=== PATIENT | female | born 1950 | race Caucasian/White ===

== ENCOUNTER → 2016-11-01 | Outpatient (CLI) | payer MEDICARE, OTHER | END | disposition home or self-care (01) | LOC: CFH 09:28 | PROVIDERS: ATTEND Internal Medicine | DX: J98.11 Atelectasis (principal) | CPT/HCPCS: 71020 ==

== ENCOUNTER → 2016-11-30 | Outpatient (CLI) | payer MEDICARE ==
[~2016-11-30] MED LIST: FURO-92 PO; METF10002 PO; OMNIPAQUE 350 MG/ML, 100ML BOTTLE ONE; POTA20TA91 PO; SIMV40TA3 PO
== END | disposition home or self-care (01) ==
LOC: RAD 16:27
PROVIDERS: ATTEND Internal Medicine
DX: J90 Pleural effusion, not elsewhere classified (principal); E04.1 Nontoxic single thyroid nodule; J98.11 Atelectasis; R18.8 Other ascites; E11.65 Type 2 diabetes mellitus with hyperglycemia; K21.9 Gastro-esophageal reflux disease without esophagitis; R60.9 Edema, unspecified; R77.0 Abnormality of albumin; Z90.49 Acquired absence of other specified parts of digestive tract
CPT/HCPCS: 36415; 71260; 74177; 82565; Q9967

== ENCOUNTER 2016-12-03 11:02 | Inpatient (IN) | payer MEDICARE ==
[~2016-12-03] VITALS: Ht 170.2 cm; Wt 128.4 kg
[2016-12-03] MEDS ORDERED: SODIUM CHLORIDE 0.9% 1,000 ML IV ONE (11:39)
[2016-12-03] MEDS ORDERED: SIMV40TA3 PO (11:54)
[2016-12-03] MEDS ORDERED: METF10002 PO (11:54)
[2016-12-03] MEDS ORDERED: POTA20TA91 PO (11:54)
[2016-12-03] MEDS ORDERED: FURO-92 PO (11:54)
[2016-12-03] MEDS ORDERED: SODIUM CHLORIDE FLUSH 10ML SYR IVF ONE (12:00)
[2016-12-03 12:12] LABS: HEMATOCRIT 44.9 % (34.6-47.8); HEMOGLOBIN 14.4 g/dL (11.7-16.4); WHITE BLOOD COUNT 11.6 x10^3/uL (3.4-10)
[2016-12-03 12:23] LABS: ASPARTATE AMINO TRANSFERASE 39 U/L (15-37); BLOOD UREA NITROGEN 10 mg/dL (7-18)
[2016-12-03 12:30] LABS: CARCINOEMBRYONIC ANTIGEN 0.46 ng/mL (0.0-3.00)
[2016-12-03 15:05] VITALS: BP 151/80
[2016-12-03] MEDS ORDERED: ONDANSETRON 2MG/ML, 2ML IVPush PRN (16:00)
[2016-12-03] MEDS ORDERED: ACETAMINOPHEN 325 MG TABLET PO PRN (16:00)
[2016-12-03] MEDS ORDERED: POLYETHYLENE GLYCOL 17 GM PACKET PO PRN (16:00)
[2016-12-03] MEDS ORDERED: DOCUSATE 100 MG CAPSULE PO PRN (16:00)
[2016-12-03] MEDS ORDERED: BISACODYL 10 MG SUPP PR PRN (16:00)
[2016-12-03] MEDS ORDERED: GLUCAGON 1 MG IM PRN (16:30)
[2016-12-03] MEDS ORDERED: DEXTROSE 4 GM TAB.CHEW PO PRN (16:30)
[2016-12-03] MEDS ORDERED: DEXTROSE 50%, 50ML SYRINGE IVPush PRN (16:30)
[2016-12-03] MEDS: INSULIN ASPART 100 UNITS/ML, PEN SQ-INSULIN SCH ×2 (16:45→19:39)
[2016-12-03] MEDS ORDERED: LIDOCAINE 1%, 20ML ONE (19:30)
[2016-12-03] MEDS: SIMVASTATIN 40 MG TABLET PO SCH (19:39)
[2016-12-03] MEDS: SODIUM CHLORIDE FLUSH 10ML SYR IVF SCH (19:40)
[2016-12-03 19:48] VITALS: BP 133/81
[2016-12-03 20:24] LABS: CYTOLOGY BODY FLUID RECD INTO PATHOLOGY; CYTOLOGY BODY FLUID SOURCE PLEURAL FLUID
[2016-12-03] MEDS: MORPHINE SULFATE 4 MG/ML, 1ML IVPush PRN (22:10)
[2016-12-04 01:02] VITALS: BP 138/88
[2016-12-04 04:37] LABS: HEMATOCRIT 40.9 % (34.6-47.8); HEMOGLOBIN 12.9 g/dL (11.7-16.4); WHITE BLOOD COUNT 10.9 x10^3/uL (3.4-10)
[2016-12-04 04:47] LABS: ASPARTATE AMINO TRANSFERASE 31 U/L (15-37); BLOOD UREA NITROGEN 11 mg/dL (7-18)
[2016-12-04] MEDS: MORPHINE SULFATE 4 MG/ML, 1ML IVPush PRN ×3 (05:32→20:32)
[2016-12-04] MEDS: INSULIN ASPART 100 UNITS/ML, PEN SQ-INSULIN SCH ×4 (07:00→20:41)
[2016-12-04 07:10] VITALS: BP 117/76
[2016-12-04] MEDS: SODIUM CHLORIDE FLUSH 10ML SYR IVF SCH ×2 (07:51→20:32)
[2016-12-04] MEDS ORDERED: LIDOCAINE 1%, 20ML ONE (11:17)
[2016-12-04 12:38] LABS: CYTOLOGY BODY FLUID RECD INTO PATHOLOGY; CYTOLOGY BODY FLUID SOURCE PLEURAL FLUID
[2016-12-04 13:05] VITALS: BP 132/74
[2016-12-04 20:30] VITALS: BP 125/78
[2016-12-04] MEDS: SIMVASTATIN 40 MG TABLET PO SCH (20:32)
[2016-12-05 03:35] VITALS: BP 113/72
[2016-12-05] MEDS: INSULIN ASPART 100 UNITS/ML, PEN SQ-INSULIN SCH ×4 (07:00→20:42)
[2016-12-05 07:33] VITALS: BP 119/80
[2016-12-05] MEDS: SODIUM CHLORIDE FLUSH 10ML SYR IVF SCH ×2 (09:00→20:46)
[2016-12-05 13:33] VITALS: BP 108/73
[2016-12-05 18:44] VITALS: BP 114/74
[2016-12-05] MEDS: SIMVASTATIN 40 MG TABLET PO SCH (20:32)
[2016-12-06 02:24] VITALS: BP 124/77
[2016-12-06 05:01] LABS: HEMATOCRIT 39.4 % (34.6-47.8); HEMOGLOBIN 12.5 g/dL (11.7-16.4); WHITE BLOOD COUNT 10.6 x10^3/uL (3.4-10)
[2016-12-06 05:12] LABS: BLOOD UREA NITROGEN 11 mg/dL (7-18)
[2016-12-06] MEDS: INSULIN ASPART 100 UNITS/ML, PEN SQ-INSULIN SCH ×2 (07:00→11:00)
[2016-12-06] MEDS: SODIUM CHLORIDE FLUSH 10ML SYR IVF SCH (07:36)
[2016-12-06 08:40] VITALS: BP 108/68
[2016-12-06] MEDS ORDERED: POTASSIUM CHLORIDE 20 MEQ TAB.ER.PRT PO ONE (13:00)
[2016-12-06 13:15] VITALS: BP 109/67
[2016-12-06] MEDS: FUROSEMIDE 40 MG/4 ML IV SCH (15:20)
[2016-12-06] MEDS: metFORMIN 500 MG TABLET PO SCH (17:25)
[2016-12-06 18:49] VITALS: BP 117/69
[2016-12-06] MEDS: SIMVASTATIN 40 MG TABLET PO SCH (20:31)
[2016-12-07 03:07] VITALS: BP 115/70
[2016-12-07 04:27] LABS: BLOOD UREA NITROGEN 12 mg/dL (7-18)
[2016-12-07] MEDS: FUROSEMIDE 40 MG/4 ML IV SCH ×2 (07:07→07:09)
[2016-12-07] MEDS: metFORMIN 500 MG TABLET PO SCH ×2 (07:07→17:25)
[2016-12-07 08:06] VITALS: BP 114/66
[2016-12-07] MEDS ORDERED: FUROSEMIDE 40 MG TABLET PO ONE (08:30)
[2016-12-07 14:23] VITALS: BP 105/67
[2016-12-07] MEDS ORDERED: GADOBUTROL 10 MMOL/10 ML PFS ONE (15:00)
[2016-12-07] MEDS: FUROSEMIDE 40 MG TABLET PO SCH (17:00)
[2016-12-07 19:18] VITALS: BP 114/67
[2016-12-07] MEDS: SIMVASTATIN 40 MG TABLET PO SCH (19:48)
[2016-12-08 01:25] VITALS: BP 118/66
[2016-12-08 04:45] LABS: BLOOD UREA NITROGEN 11 mg/dL (7-18)
[2016-12-08] MEDS: FUROSEMIDE 40 MG TABLET PO SCH (08:02)
[2016-12-08] MEDS: metFORMIN 500 MG TABLET PO SCH ×2 (08:02→16:40)
[2016-12-08 08:56] VITALS: BP 115/77
[2016-12-08] MEDS ORDERED: GOLYTELY 4,000ML ORAL.SOL PO ONE (12:00)
[2016-12-08] MEDS: PIPERACILLIN/TAZO/PMX 3.375GM 50 ML IV SCH ×2 (12:18→19:53)
[2016-12-08 16:24] VITALS: BP 130/74
[2016-12-08] MEDS: SIMVASTATIN 40 MG TABLET PO SCH (19:53)
[2016-12-08] MEDS ORDERED: ONDANSETRON 2MG/ML, 2ML IVPush PRN (20:00)
[2016-12-08] MEDS ORDERED: DOCUSATE 100 MG CAPSULE PO PRN (20:00)
[2016-12-08] MEDS ORDERED: BISACODYL 10 MG SUPP PR PRN (20:00)
[2016-12-08] MEDS ORDERED: ACETAMINOPHEN 325 MG TABLET PO PRN (20:00)
[2016-12-08] MEDS ORDERED: POLYETHYLENE GLYCOL 17 GM PACKET PO PRN (20:00)
[2016-12-08 20:17] VITALS: BP 121/77
[2016-12-09] VITALS (10 sets, daily range): BP systolic 80–121; BP diastolic 44–71
[2016-12-09 03:41] LABS: HEMATOCRIT 36.8 % (34.6-47.8); HEMOGLOBIN 11.8 g/dL (11.7-16.4); WHITE BLOOD COUNT 9.4 x10^3/uL (3.4-10)
[2016-12-09 03:58] LABS: BLOOD UREA NITROGEN 9 mg/dL (7-18)
[2016-12-09] MEDS: PIPERACILLIN/TAZO/PMX 3.375GM 50 ML IV SCH ×3 (04:57→22:09)
[2016-12-09] MEDS: metFORMIN 500 MG TABLET PO SCH ×2 (08:53→16:22)
[2016-12-09] MEDS ORDERED: MIDAZOLAM 1 MG/ML, 2ML ONE (09:58)
[2016-12-09] MEDS ORDERED: FENTANYL PF 100 MCG/2ML ONE ×3 (09:58)
[2016-12-09] MEDS ORDERED: PROPOFOL 10 MG/ML, 20ML ONE (10:21)
[2016-12-09] MEDS ORDERED: ROCURONIUM 10 MG/ML ONE (10:21)
[2016-12-09] MEDS ORDERED: ONDANSETRON 2MG/ML, 2ML ONE (10:21)
[2016-12-09] MEDS ORDERED: OXYcodone 5 MG/5 ML ORAL.SOL UDC PO PRN (10:30)
[2016-12-09] MEDS ORDERED: hydrALAzine 20 MG/ML, 1ML IV PRN (10:30)
[2016-12-09] MEDS ORDERED: LABETALOL 5MG/ML, 20ML IV PRN (10:30)
[2016-12-09] MEDS ORDERED: MEPERIDINE/PF 25MG/0.5ML IVPush PRN (10:30)
[2016-12-09] MEDS ORDERED: ONDANSETRON 2MG/ML, 2ML IVPush PRN ×2 (10:30→12:00)
[2016-12-09] MEDS ORDERED: PROMETHAZINE 25 MG/ML, 1ML IV PRN (10:30)
[2016-12-09] MEDS ORDERED: HYDROmorphone 1 MG/ML, 1ML IV PRN (10:30)
[2016-12-09] MEDS ORDERED: ACETAMINOPHEN 325 MG TABLET PO PRN (10:30)
[2016-12-09] MEDS ORDERED: FENTANYL PF 100 MCG/2ML IV PRN (10:30)
[2016-12-09] MEDS ORDERED: PIPERACILLIN/TAZO/PMX 3.375GM 50 ML ONE (10:52)
[2016-12-09] MEDS ORDERED: POTASSIUM CHLORIDE 20 MEQ in D5%-0.45% NACL 1,000 ML IV SCH ×2 (11:58→22:30)
[2016-12-09] MEDS: KETOROLAC 30 MG/1 ML IVPush SCH ×2 (12:00→18:16)
[2016-12-09 14:37] LABS: HEMATOCRIT 39.4 % (34.6-47.8); HEMOGLOBIN 12.4 g/dL (11.7-16.4); WHITE BLOOD COUNT 32.4 x10^3/uL (3.4-10)
[2016-12-09] MEDS ORDERED: SODIUM CHLORIDE 0.9% 1,000ML IVBOLUS STA (14:47)
[2016-12-09 14:55] LABS: DIFF TOTAL CELLS COUNTED 100 CELL DIFF
[2016-12-09 14:57] LABS: ANISOCYTOSIS 1+; POLYCHROMASIA 1+
[2016-12-09 14:58] LABS: LARGE PLATELETS 1+
[2016-12-09] MEDS ORDERED: SODIUM CHLORIDE 0.9% 2,000 ML IV ONE (15:00)
[2016-12-09 15:09] LABS: VERIFY COUNTS? YES
[2016-12-09] MEDS: ALBUMIN HUMAN 5% 500 ML IV SCH (16:21)
[2016-12-09] MEDS: SIMVASTATIN 40 MG TABLET PO SCH (21:00)
[2016-12-09] MEDS ORDERED: LACTATED RINGERS 1,000 ML IVBOLUS ONE (21:30)
[2016-12-09] MEDS ORDERED: D5%-0.45NACL+KCL 20MEQ 1,000 ML IV SCH (23:30)
[2016-12-10] MEDS: KETOROLAC 30 MG/1 ML IVPush SCH ×4 (00:30→18:11)
[2016-12-10 01:33] VITALS: BP 97/61
[2016-12-10] MEDS: ALBUMIN HUMAN 5% 500 ML IV SCH ×2 (02:49→13:09)
[2016-12-10] MEDS: PIPERACILLIN/TAZO/PMX 3.375GM 50 ML IV SCH ×3 (05:00→22:19)
[2016-12-10] MEDS: ENOXAPARIN 40 MG/0.4 ML SQ SCH (05:03)
[2016-12-10] MEDS: D5%-0.45NACL+KCL 20MEQ 1,000 ML IV SCH ×5 (05:07→22:30)
[2016-12-10 05:10] LABS: HEMATOCRIT 26.2 % (34.6-47.8); HEMOGLOBIN 8.2 g/dL (11.7-16.4); WHITE BLOOD COUNT 11.2 x10^3/uL (3.4-10)
[2016-12-10 05:13] LABS: BLOOD UREA NITROGEN 10 mg/dL (7-18)
[2016-12-10 05:16] LABS: TOTAL IRON BINDING CAPACITY 144 mcg/dL (250-450)
[2016-12-10 05:47] LABS: DIFF TOTAL CELLS COUNTED 100 CELL DIFF
[2016-12-10 05:50] LABS: ANISOCYTOSIS 1+; VERIFY COUNTS? YES
[2016-12-10 05:51] LABS: LARGE PLATELETS 1+
[2016-12-10 07:19] VITALS: BP 99/59
[2016-12-10] MEDS: metFORMIN 500 MG TABLET PO SCH ×2 (09:07→17:55)
[2016-12-10] MEDS: IRON SUCROSE COMPLEX 100MG/5ML IV SCH (13:08)
[2016-12-10 13:22] VITALS: BP 77/46
[2016-12-10 14:00] VITALS: BP 86/38
[2016-12-10 14:04] VITALS: BP 94/41
[2016-12-10 18:56] VITALS: BP 100/57
[2016-12-10] MEDS: SIMVASTATIN 40 MG TABLET PO SCH (22:18)
[2016-12-11] MEDS: KETOROLAC 30 MG/1 ML IVPush SCH ×5 (00:16→23:56)
[2016-12-11] MEDS: NYSTATIN 500,000 UNITS/5 ML UDC PO SCH ×5 (00:16→22:38)
[2016-12-11 03:35] VITALS: BP 94/60
[2016-12-11] MEDS: D5%-0.45NACL+KCL 20MEQ 1,000 ML IV SCH ×4 (04:30→22:38)
[2016-12-11 05:35] LABS: HEMOGLOBIN 7.2 g/dL (11.7-16.4); WHITE BLOOD COUNT 13.6 x10^3/uL (3.4-10)
[2016-12-11 05:36] LABS: HEMATOCRIT 22.3 % (34.6-47.8)
[2016-12-11] MEDS: ENOXAPARIN 40 MG/0.4 ML SQ SCH (05:43)
[2016-12-11] MEDS: PIPERACILLIN/TAZO/PMX 3.375GM 50 ML IV SCH ×3 (05:44→20:41)
[2016-12-11 07:05] VITALS: BP 100/52
[2016-12-11] MEDS ORDERED: MAGNESIUM HYDROXIDE 8%, 30ML UDC PO PRN (09:00)
[2016-12-11] MEDS: IRON SUCROSE COMPLEX 100MG/5ML IV SCH (09:17)
[2016-12-11] MEDS: metFORMIN 500 MG TABLET PO SCH ×2 (09:17→16:43)
[2016-12-11] MEDS ORDERED: FUROSEMIDE 40 MG/4 ML IV ONE (13:00)
[2016-12-11 14:10] VITALS: BP 77/51
[2016-12-11 19:46] VITALS: BP 106/71
[2016-12-11] MEDS: SIMVASTATIN 40 MG TABLET PO SCH (20:42)
[2016-12-12] VITALS (7 sets, daily range): BP systolic 114–148; BP diastolic 45–70
[2016-12-12] MEDS: D5%-0.45NACL+KCL 20MEQ 1,000 ML IV SCH ×4 (04:00→21:22)
[2016-12-12] MEDS: PIPERACILLIN/TAZO/PMX 3.375GM 50 ML IV SCH ×3 (05:00→21:23)
[2016-12-12] MEDS: NYSTATIN 500,000 UNITS/5 ML UDC PO SCH ×4 (05:30→21:55)
[2016-12-12] MEDS: ENOXAPARIN 40 MG/0.4 ML SQ SCH (06:00)
[2016-12-12] MEDS: KETOROLAC 30 MG/1 ML IVPush SCH ×3 (06:00→17:39)
[2016-12-12 08:19] LABS: BLOOD UREA NITROGEN 8 mg/dL (7-18)
[2016-12-12 08:25] LABS: HEMATOCRIT 23.8 % (34.6-47.8); HEMOGLOBIN 7.4 g/dL (11.7-16.4); WHITE BLOOD COUNT 12.5 x10^3/uL (3.4-10)
[2016-12-12] MEDS ORDERED: FUROSEMIDE 40 MG/4 ML IV ONE (09:30)
[2016-12-12] MEDS: metFORMIN 500 MG TABLET PO SCH ×2 (09:52→17:20)
[2016-12-12] MEDS: IRON SUCROSE COMPLEX 100MG/5ML IV SCH (09:53)
[2016-12-12] MEDS ORDERED: DIPHENHYDRAMINE 50 MG/ML, 1ML IVPush PRN (10:30)
[2016-12-12] MEDS ORDERED: DIPHENHYDRAMINE 50 MG/ML, 1ML ONE (10:34)
[2016-12-12] MEDS: SIMVASTATIN 40 MG TABLET PO SCH (21:23)
[2016-12-13] MEDS: KETOROLAC 30 MG/1 ML IVPush SCH ×4 (00:09→18:23)
[2016-12-13 01:38] VITALS: BP 113/68
[2016-12-13 03:06] LABS: HEMATOCRIT 28.1 % (34.6-47.8); HEMOGLOBIN 9.1 g/dL (11.7-16.4); WHITE BLOOD COUNT 12.4 x10^3/uL (3.4-10)
[2016-12-13 03:16] LABS: BLOOD UREA NITROGEN 6 mg/dL (7-18)
[2016-12-13] MEDS: NYSTATIN 500,000 UNITS/5 ML UDC PO SCH ×4 (05:30→20:28)
[2016-12-13] MEDS: D5%-0.45NACL+KCL 20MEQ 1,000 ML IV SCH (05:36)
[2016-12-13] MEDS: PIPERACILLIN/TAZO/PMX 3.375GM 50 ML IV SCH ×3 (05:36→22:13)
[2016-12-13] MEDS: ENOXAPARIN 40 MG/0.4 ML SQ SCH (05:37)
[2016-12-13 08:07] VITALS: BP 122/78
[2016-12-13] MEDS: metFORMIN 500 MG TABLET PO SCH ×2 (08:49→18:03)
[2016-12-13] MEDS: IRON SUCROSE COMPLEX 100MG/5ML IV SCH (08:49)
[2016-12-13] MEDS ORDERED: D5%-0.45NACL+KCL 20MEQ 1,000 ML IV SCH (10:00)
[2016-12-13 14:00] VITALS: BP 101/64
[2016-12-13 16:23] VITALS: BP 101/64
[2016-12-13] MEDS: FUROSEMIDE 40 MG/4 ML IV SCH (17:00)
[2016-12-13] MEDS: SIMVASTATIN 40 MG TABLET PO SCH (20:43)
[2016-12-13 20:54] VITALS: BP 118/66
[2016-12-14] MEDS: KETOROLAC 30 MG/1 ML IVPush SCH ×2 (00:05→05:50)
[2016-12-14 00:16] VITALS: BP 133/78
[2016-12-14] MEDS: NYSTATIN 500,000 UNITS/5 ML UDC PO SCH ×4 (01:08→23:30)
[2016-12-14 04:39] LABS: HEMOGLOBIN 9.3 g/dL (11.7-16.4); WHITE BLOOD COUNT 10.8 x10^3/uL (3.4-10)
[2016-12-14 04:45] LABS: BLOOD UREA NITROGEN 5 mg/dL (7-18)
[2016-12-14] MEDS: ENOXAPARIN 40 MG/0.4 ML SQ SCH (05:36)
[2016-12-14] MEDS: PIPERACILLIN/TAZO/PMX 3.375GM 50 ML IV SCH ×3 (05:50→22:20)
[2016-12-14 06:40] VITALS: BP 102/67
[2016-12-14] MEDS ORDERED: OMEPRAZOLE 20 MG CAPSULE.DR PO SCH (07:30)
[2016-12-14] MEDS: FUROSEMIDE 40 MG/4 ML IV SCH ×2 (07:30→16:56)
[2016-12-14] MEDS: metFORMIN 500 MG TABLET PO SCH ×2 (08:00→16:55)
[2016-12-14] MEDS ORDERED: FENTANYL PF 100 MCG/2ML ONE ×2 (09:45→09:46)
[2016-12-14] MEDS ORDERED: MIDAZOLAM 1 MG/ML, 5ML ONE (10:24)
[2016-12-14 13:47] VITALS: BP 116/45
[2016-12-14 19:58] VITALS: BP 127/75
[2016-12-14] MEDS: OMEPRAZOLE 20 MG CAPSULE.DR PO SCH (20:17)
[2016-12-14] MEDS: SIMVASTATIN 40 MG TABLET PO SCH (20:17)
[2016-12-15 02:20] VITALS: BP 156/59
[2016-12-15] MEDS: NYSTATIN 500,000 UNITS/5 ML UDC PO SCH ×5 (04:44→22:51)
[2016-12-15] MEDS: ENOXAPARIN 40 MG/0.4 ML SQ SCH (04:59)
[2016-12-15] MEDS: PIPERACILLIN/TAZO/PMX 3.375GM 50 ML IV SCH ×2 (04:59→13:59)
[2016-12-15 07:07] VITALS: BP 120/74
[2016-12-15] MEDS: metFORMIN 500 MG TABLET PO SCH ×2 (08:07→17:01)
[2016-12-15] MEDS: OMEPRAZOLE 20 MG CAPSULE.DR PO SCH ×2 (08:07→20:14)
[2016-12-15 13:32] VITALS: BP 117/73
[2016-12-15 19:46] VITALS: BP 108/76
[2016-12-15] MEDS: SIMVASTATIN 40 MG TABLET PO SCH (20:14)
[2016-12-16 04:23] VITALS: BP 120/73
[2016-12-16] MEDS: ENOXAPARIN 40 MG/0.4 ML SQ SCH (04:36)
[2016-12-16] MEDS: metFORMIN 500 MG TABLET PO SCH ×2 (07:44→16:56)
[2016-12-16] MEDS: OMEPRAZOLE 20 MG CAPSULE.DR PO SCH ×2 (07:44→16:56)
[2016-12-16 07:46] VITALS: BP 116/71
[2016-12-16] MEDS: NYSTATIN 500,000 UNITS/5 ML UDC PO SCH ×3 (11:19→23:30)
[2016-12-16 13:51] VITALS: BP 131/73
[2016-12-16] MEDS ORDERED: LABETALOL 5MG/ML, 20ML IV PRN (14:00)
[2016-12-16] MEDS ORDERED: ONDANSETRON 2MG/ML, 2ML IVPush PRN (14:00)
[2016-12-16] MEDS ORDERED: BISACODYL 10 MG SUPP PR PRN (14:00)
[2016-12-16] MEDS ORDERED: DOCUSATE 100 MG CAPSULE PO PRN (14:00)
[2016-12-16] MEDS ORDERED: DIPHENHYDRAMINE 50 MG/ML, 1ML IVPush PRN (14:00)
[2016-12-16] MEDS ORDERED: PROMETHAZINE 25 MG/ML, 1ML IV PRN (14:00)
[2016-12-16] MEDS ORDERED: BUMETANIDE 0.25 MG/ML, 4ML IV ONE (15:00)
[2016-12-16 18:49] VITALS: BP 109/74
[2016-12-16] MEDS: SIMVASTATIN 40 MG TABLET PO SCH (20:14)
[2016-12-17 03:06] VITALS: BP 128/75
[2016-12-17] MEDS: NYSTATIN 500,000 UNITS/5 ML UDC PO SCH ×4 (05:16→23:21)
[2016-12-17] MEDS: ENOXAPARIN 40 MG/0.4 ML SQ SCH (06:14)
[2016-12-17] MEDS: metFORMIN 500 MG TABLET PO SCH ×2 (07:11→16:37)
[2016-12-17] MEDS: OMEPRAZOLE 20 MG CAPSULE.DR PO SCH ×2 (07:11→16:37)
[2016-12-17] MEDS ORDERED: BUMETANIDE 0.25 MG/ML, 4ML IV ONE (08:00)
[2016-12-17 08:02] VITALS: BP 138/82
[2016-12-17 14:17] VITALS: BP 123/77
[2016-12-17 19:14] VITALS: BP 137/79
[2016-12-17] MEDS: SIMVASTATIN 40 MG TABLET PO SCH (21:23)
[2016-12-18 03:55] VITALS: BP 119/71
[2016-12-18] MEDS: NYSTATIN 500,000 UNITS/5 ML UDC PO SCH ×2 (05:19→11:30)
[2016-12-18] MEDS: ENOXAPARIN 40 MG/0.4 ML SQ SCH (06:46)
[2016-12-18 07:28] VITALS: BP 114/71
[2016-12-18] MEDS: metFORMIN 500 MG TABLET PO SCH (07:33)
[2016-12-18] MEDS: OMEPRAZOLE 20 MG CAPSULE.DR PO SCH (07:33)
[2016-12-18 11:39] VITALS: BP 145/84
[2016-12-18] MEDS ORDERED: OMEP-110 PO (12:09)
[2016-12-18] MEDS ORDERED: HYDR-3241 PO (12:11)
== END 2016-12-18 14:17 | disposition home health service (06) | DRG 736 ==
LOC: ED 12:31 → EDIP 12:48 → 3NW 15:04
PROVIDERS: ADMIT Family Medicine; ATTEND Internal Medicine
PROC: 0W993ZZ Drainage of Right Pleural Cavity, Percutaneous Approach (ICD-10-PCS; 2016-12-03)
PROC: BB4BZZZ Ultrasonography of Pleura (ICD-10-PCS; 2016-12-03)
PROC: 0WBF3ZX Excision of Abdominal Wall, Percutaneous Approach, Diagnostic (ICD-10-PCS; 2016-12-04)
PROC: 0DBS0ZZ (ICD-10-PCS; 2016-12-09)
PROC: 0WBF0ZX Excision of Abdominal Wall, Open Approach, Diagnostic (ICD-10-PCS; 2016-12-09)
PROC: 0DBV0ZZ Excision of Mesentery, Open Approach (ICD-10-PCS; 2016-12-09)
PROC: 0UT20ZZ Resection of Bilateral Ovaries, Open Approach (ICD-10-PCS; principal; 2016-12-09 10:00)
PROC: 0W9B3ZZ Drainage of Left Pleural Cavity, Percutaneous Approach (ICD-10-PCS; 2016-12-11)
PROC: 30233N1 Transfusion of Nonautologous Red Blood Cells into Peripheral Vein, Percutaneous Approach (ICD-10-PCS; 2016-12-12)
PROC: 0DJ08ZZ Inspection of Upper Intestinal Tract, Via Natural or Artificial Opening Endoscopic (ICD-10-PCS; 2016-12-14)
DX: C56.9 Malignant neoplasm of unspecified ovary (principal); E43 Unspecified severe protein-calorie malnutrition; J96.00 Acute respiratory failure, unspecified whether with hypoxia or hypercapnia; J90 Pleural effusion, not elsewhere classified; J91.0 Malignant pleural effusion; J18.9 Pneumonia, unspecified organism; Z68.41 Body mass index [BMI] 40.0-44.9, adult; R18.8 Other ascites; D62 Acute posthemorrhagic anemia; J98.11 Atelectasis; K26.9 Duodenal ulcer, unspecified as acute or chronic, without hemorrhage or perforation; R13.10 Dysphagia, unspecified; D50.9 Iron deficiency anemia, unspecified; E11.9 Type 2 diabetes mellitus without complications; R19.00 Intra-abdominal and pelvic swelling, mass and lump, unspecified site; D72.829 Elevated white blood cell count, unspecified; D75.89 Other specified diseases of blood and blood-forming organs; E78.00 Pure hypercholesterolemia, unspecified; E78.5 Hyperlipidemia, unspecified; J98.6 Disorders of diaphragm; K21.0 Gastro-esophageal reflux disease with esophagitis; Z66 Do not resuscitate; Z79.899 Other long term (current) drug therapy; Z80.0 Family history of malignant neoplasm of digestive organs; Z80.3 Family history of malignant neoplasm of breast; Z85.43 Personal history of malignant neoplasm of ovary; Z87.891 Personal history of nicotine dependence; Z90.710 Acquired absence of both cervix and uterus; Z88.2 Allergy status to sulfonamides
CPT/HCPCS: 32555; 36415; 49180; 70553; 71010; 71020; 76942; 80048; 80053; 81001; 82040; 82105; 82378; 82962; 83540; 83550; 83690; 83735; 84100; 85025; 85610; 86301; 86304; 86850; 86900; 86923; 87086; 87338; 88112; 88305; 88307; 88341; 88342; 93005; 93970; 96360; 96361; 99152; 99153; A9585; J1650; J1756; J1815; J1885; J1940; J2250; J2270; J2405; J2543; J2704; J3010; J3490; P9045; C1765; G0461; J1200; J3480; J7030; J7120; P9016

== ENCOUNTER → 2017-01-02 | Outpatient (CLI) | payer MEDICARE ==
[~2017-01-02] MED LIST changes: +HYDR-3241 PO; +OMEP-110 PO; -OMNIPAQUE 350 MG/ML, 100ML BOTTLE ONE
== END | disposition home or self-care (01) ==
LOC: CFH 15:48
PROVIDERS: ATTEND Specialist
DX: J90 Pleural effusion, not elsewhere classified (principal); J98.11 Atelectasis; C56.9 Malignant neoplasm of unspecified ovary
CPT/HCPCS: 71020

== ENCOUNTER → 2017-01-09 | Outpatient (CLI) | payer MEDICARE ==
[~2017-01-09] MED LIST changes: +OMNIPAQUE 350 MG/ML, 100ML BOTTLE ONE
== END | disposition home or self-care (01) ==
LOC: CFH 11:26
PROVIDERS: ATTEND Specialist
DX: C78.6 Secondary malignant neoplasm of retroperitoneum and peritoneum (principal); C56.9 Malignant neoplasm of unspecified ovary; J98.11 Atelectasis; J90 Pleural effusion, not elsewhere classified; R19.00 Intra-abdominal and pelvic swelling, mass and lump, unspecified site; I70.0 Atherosclerosis of aorta; I26.99 Other pulmonary embolism without acute cor pulmonale; Z90.710 Acquired absence of both cervix and uterus
CPT/HCPCS: 71260; 74177; Q9967

== ENCOUNTER → 2017-04-08 | Outpatient (CLI) | payer MEDICARE ==
[~2017-04-08] MED LIST changes: +ENOX150S5 SQ; +IRON1TAB60 PO; +MAGN300C PO; -OMNIPAQUE 350 MG/ML, 100ML BOTTLE ONE
== END ==
LOC: ED 12:38
PROVIDERS: ATTEND Specialist
DX: Z02.9 Encounter for administrative examinations, unspecified (principal)

== ENCOUNTER → 2017-06-07 | Outpatient (CLI) | payer MEDICARE ==
[~2017-06-07] MED LIST changes: +OMNIPAQUE 350 MG/ML, 100ML BOTTLE ONE
== END | disposition home or self-care (01) ==
LOC: CFH 07:06
PROVIDERS: ATTEND Specialist
DX: C78.7 Secondary malignant neoplasm of liver and intrahepatic bile duct (principal); C78.6 Secondary malignant neoplasm of retroperitoneum and peritoneum; C56.9 Malignant neoplasm of unspecified ovary; R91.8 Other nonspecific abnormal finding of lung field; J84.10 Pulmonary fibrosis, unspecified; Z86.711 Personal history of pulmonary embolism
CPT/HCPCS: 71260; 74177; Q9967

== ENCOUNTER → 2017-08-14 | Outpatient (CLI) | payer MEDICARE | LOC: CFH 10:32 | PROVIDERS: ATTEND Specialist | DX: C79.9 Secondary malignant neoplasm of unspecified site (principal); C56.9 Malignant neoplasm of unspecified ovary; J90 Pleural effusion, not elsewhere classified; E04.1 Nontoxic single thyroid nodule; R19.00 Intra-abdominal and pelvic swelling, mass and lump, unspecified site | CPT/HCPCS: 71260; 74177; 82565; Q9967 ==